=== PATIENT | female | born 1985 | race Caucasian/White ===

== ENCOUNTER 2024-08-14 12:26 | Day surgery (SDC) | payer OTHER ==
[2024-08-14] MEDS ORDERED: Xylocaine-Mpf 2% 5 Ml Vial IJ ONE (12:27)
[2024-08-14] MEDS ORDERED: DIPRIVAN 200 MG/20 ML IV ONE (14:29)
--- NOTE | 2024-08-14 16:24 | XRAY ---
Indication: Bilateral L4-S1 MBB. Intraoperative fluoroscopy provided for 7 seconds. Single digital spot image submitted for interpretation demonstrates posterior needle tips projecting over the expected left and right L4-S1 nerve roots. Correlate with intraoperative findings/report.
--- NOTE | 2024-08-14 16:58 | XRAY ---
7 seconds of fluoroscopy was used in surgery for a bilateral L4-S1 MBB.
== END 2024-08-14 14:52 | disposition home or self-care (01) ==
LOC: SDC-PAIN 12:26
PROVIDERS: ATTEND Psychiatry & Neurology Pain Medicine
DX: M47.816 Spondylosis without myelopathy or radiculopathy, lumbar region (principal)
CPT/HCPCS: 72020; 77002; 93005; J2704

== ENCOUNTER 2024-10-23 14:01 | Day surgery (SDC) | payer OTHER ==
[2024-10-23] MEDS ORDERED: BUPIVACAINE 0.5% VIAL IJ ONE (14:02)
[2024-10-23] MEDS ORDERED: propofoL IV ONE (15:59)
--- NOTE | 2024-10-23 16:54 | XRAY ---
Indication: Bilateral L4-S1 MBB. Intraoperative fluoroscopy provided for 13 seconds. Single digital spot image submitted for interpretation demonstrates posterior needle tips projecting over the expected left and right L4-S1 nerve roots. Correlate with intraoperative findings/report.
--- NOTE | 2024-10-23 17:20 | XRAY ---
13 seconds of fluoroscopy were used in surgery for a bilateral L4-S1 MBB.
== END 2024-10-23 16:29 | disposition home or self-care (01) ==
LOC: SDC-PAIN 14:01
PROVIDERS: ATTEND Psychiatry & Neurology Pain Medicine
DX: M47.816 Spondylosis without myelopathy or radiculopathy, lumbar region (principal)
CPT/HCPCS: 64493; 64494; 72020; 77002; J2704

== ENCOUNTER 2024-11-27 12:52 | Day surgery (SDC) | payer OTHER ==
[2024-11-27] MEDS ORDERED: LIDOCAINE HCL 1% AMPUL 5 ML IJ ONE (12:53)
[2024-11-27] MEDS ORDERED: BUPIVACAINE 0.5% VIAL IJ ONE (12:53)
[2024-11-27] MEDS ORDERED: methylPREDNISolone acetate IM ONE (12:53)
[2024-11-27] MEDS ORDERED: Lactated Ringers 500 ML IV ONE (12:55)
[2024-11-27] MEDS ORDERED: propofoL IV ONE (13:57)
--- NOTE | 2024-11-27 14:41 | XRAY ---
Indication: Left L4-S1 RFA. Intraoperative fluoroscopy provided for 22 seconds. 6 digital spot image obtained prone submitted for interpretation demonstrates posterior needle tips projecting over expected left L4-S1 nerve roots. Correlate with intraoperative findings/report.
--- NOTE | 2024-11-27 14:57 | XRAY ---
22 seconds of fluoroscopy was used in surgery for a left L4-S1 RFA.
== END 2024-11-27 14:30 | disposition home or self-care (01) ==
LOC: SDC-PAIN 12:52
PROVIDERS: ATTEND Psychiatry & Neurology Pain Medicine
DX: M47.817 Spondylosis without myelopathy or radiculopathy, lumbosacral region (principal)
CPT/HCPCS: 64635; 64636; 72100; 77002; J1010; J2704

== ENCOUNTER 2024-12-04 10:47 | Day surgery (SDC) | payer OTHER ==
[2024-12-04] MEDS ORDERED: Depo-Medrol 40 MG/ML IM ONE (10:48)
[2024-12-04] MEDS ORDERED: Lactated Ringers 500 ML IV ONE (10:48)
[2024-12-04] MEDS ORDERED: LIDOCAINE HCL 1% AMPUL 5 ML IJ ONE (10:48)
[2024-12-04] MEDS ORDERED: BUPIVACAINE 0.5% VIAL IJ ONE (10:48)
[2024-12-04] MEDS ORDERED: propofoL IV ONE (12:11)
--- NOTE | 2024-12-04 13:03 | XRAY ---
Indication: Right L4-S1 RFA. Intraoperative fluoroscopy provided for 18 seconds. 2 digital spot image submitted for interpretation demonstrates posterior needle tips projecting over expected right L4-S1 nerve roots. Correlate with intraoperative findings/report.
--- NOTE | 2024-12-04 14:07 | XRAY ---
18 seconds of fluoroscopy was used in surgery for a right L4-S1 RFA.
== END 2024-12-04 12:40 | disposition home or self-care (01) ==
LOC: SDC-PAIN 10:47
PROVIDERS: ATTEND Psychiatry & Neurology Pain Medicine
DX: M47.816 Spondylosis without myelopathy or radiculopathy, lumbar region (principal)
CPT/HCPCS: 64635; 64636; 72100; 77002; J2704

== ENCOUNTER 2025-06-30 17:17 | Emergency (ER) | payer OTHER ==
[2025-06-30 17:52] VITALS: O2SAT 100
--- NOTE | 2025-06-30 18:20 | ERPHSYRPT ---
- History of Present Illness Time Seen by Provider: 06/30/25 17:45 Source: patient Exam Limitations: no limitations Patient Subjective Stated Complaint: patient here for evaluation of recurrent bartholins cyst . Triage Nursing Assessment: . Severity: mild Associated Symptoms: denies symptoms Allergies/Adverse Reactions: Penicillins Allergy (Severe, Verified 06/30/25 17:57) Anaphylactic Reaction cefazolin [From Kefzol] Allergy (Unknown, Verified 06/30/25 17:57) ibuprofen Adverse Reaction (Mild, Verified 06/30/25 17:57) Stomach Pain rocuronium Adverse Reaction (Unknown, Verified 06/30/25 17:57) Hx Tetanus, Diphtheria Vaccination/Date Given: No Hx Influenza Vaccination/Date Given: No Travel Risk - International Travel Have you traveled outside of the country in past 3 weeks: No - Emerging Infectious Disease Are you exhibiting symptoms associated with any current EIDs: No - Review of Systems Constitutional: No Symptoms Eyes: No Symptoms Ears, Nose, & Throat: No Symptoms Respiratory: No Symptoms Cardiac: No Symptoms Abdominal/Gastrointestinal: No Symptoms Genitourinary Symptoms: No Symptoms Musculoskeletal: No Symptoms Skin: No Symptoms Neurological: No Symptoms Psychological: No Symptoms Endocrine: No Symptoms Hematologic/Lymphatic: No Symptoms Immunological/Allergic: No Symptoms - Past Medical History Pertinent Past Medical History: Yes Neurological History: No Pertinent History ENT History: No Pertinent History Cardiac History: No Pertinent History Respiratory History: Asthma Endocrine Medical History: No Pertinent History Musculoskeletal History: No Pertinent History GI Medical History: GERD History: No Pertinent History Psycho-Social History: Anxiety, Bipolar Female Reproductive Disorders: No Pertinent History - Past Surgical History Past Surgical History: Yes Neuro Surgical History: No Pertinent History Cardiac: No Pertinent History Respiratory: No Pertinent History Gastrointestinal: No Pertinent History Musculoskeletal: No Pertinent History Female Surgical History: Section Other Surgical History: partial hysterectomy,endometrial ablation - Female History Hx Now: No - Social History Smoking Status: Never smoker Exposure to second hand smoke: No Drug Use: none - Social Determinants of Health Will the patient participate in the screening: Declined to provide - Nursing Vital Signs Nursing Vital Signs: Initial Vital Signs Pulse Rate 87 06/30/25 17:45 Respiratory Rate 16 06/30/25 17:45 Blood Pressure 129/69 06/30/25 17:45 O2 Sat by Pulse Oximetry 100 06/30/25 17:45 Pain Scale Pain Intensity 7 - Physical Exam General Appearance: no apparent distress Eye Exam: PERRL/EOMI Ears, Nose, Throat Exam: normal ENT inspection Respiratory Exam: normal breath sounds Cardiovascular Exam: regular rate/rhythm Gastrointestinal/Abdomen Exam: soft, normal bowel sounds Pelvic Exam: other (small bartholins cyst noted on the right labia that is draining patient will not tolerated thorough exam - nursig staff present and patient refused incision and drainage ) SpO2: 100 - Progress Progress Note: Patient was seen and evaluated for her complaints she is refusing I&D at this time she prefers warm compresses and oral antibiotics and will follow-up with her CLE[employer] UP PERSON in the morning she will be discharged home with a prescription of Bactrim 06/30/25 18:20 - Departure Departure Disposition: Home Clinical Impression: Bartholin's cyst Condition: Stable Critical Care Time: No Referrals: SONAM MATHUR NP [Primary Care Provider, UNKNOWN] - Follow up/PCP as directed Prescriptions: Smz/Tmp Ds Tablet [Bactrim Ds Tablet] 1 udtab PO BID #14 tablet
[2025-06-30 18:22] VITALS: BP 103/53; PULSE 78; RESP 14; TEMP 97.4
[2025-06-30] MEDS ORDERED: BACTRIM DS TABLET PO ONE (18:23)
[2025-06-30] MEDS: BACTRIM DS TABLET PO STA (18:23)
== END 2025-06-30 18:35 | disposition home or self-care (01) ==
LOC: ED 17:17
DX: N75.0 Cyst of Bartholin's gland (principal)